=== PATIENT | male | born 1980 | race African-American/Black ===

== ENCOUNTER 2020-03-19 07:17 | Outpatient (REF) | payer MEDICAID, OTHER, SELFPAY ==
[2020-03-19 16:12] LABS: CT PCR NOT DETECTED (Not Detect.); NG PCR NOT DETECTED (Not Detect.)
[2020-03-23 05:13] LABS: Syphilis Screen Nonreactive (Nonreactive)
== END 2020-03-19 07:18 | disposition home or self-care (01) ==
LOC: HO.LAB 07:17
PROVIDERS: PCP Internal Medicine Geriatric Medicine; Visit Provider Internal Medicine
DX: Z00.00 Encounter for general adult medical examination without abnormal findings (principal)
CPT/HCPCS: 86780; 87491; 87591

== ENCOUNTER 2020-03-21 07:16 | Outpatient (REF) | payer MEDICAID, OTHER, SELFPAY | END 2020-03-21 07:17 | disposition home or self-care (01) | LOC: HO.LAB 07:16 | PROVIDERS: PCP Internal Medicine Geriatric Medicine; Visit Provider Internal Medicine | DX: Z00.00 Encounter for general adult medical examination without abnormal findings (principal) | CPT/HCPCS: 86481 ==

== ENCOUNTER → 2022-07-19 09:27 | Outpatient (BNVA) | payer OTHER, MEDICAID, SELFPAY | PROVIDERS: PCP Internal Medicine Geriatric Medicine; Referring Provider Internal Medicine Geriatric Medicine; Visit Provider Internal Medicine | DX: I45.6 Pre-excitation syndrome (principal); I49.3 Ventricular premature depolarization | CPT/HCPCS: 93005 ==

== ENCOUNTER → 2022-08-09 07:46 | Outpatient (REF) | payer OTHER, MEDICAID, SELFPAY ==
--- NOTE | 2022-08-09 07:49 | CA_ITS ---
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 Pt tolerayted well, denies any SOB or CP. EKG with PVC's at rest and in recovery,T wave inversion in lead 3, V5 and V 6 that remained unchanged after exercise. No ischemic changes seen. Normotensive response to exercise. Test reviewed with Dr. Nieves. Referred By: Huber Olson Overread By: Briana Chavira NP
== END ==
LOC: HO.CARD 07:46
PROVIDERS: PCP Internal Medicine Geriatric Medicine; Visit Provider Internal Medicine
DX: I45.6 Pre-excitation syndrome (principal)
CPT/HCPCS: 93017

== ENCOUNTER → 2022-08-22 09:18 | Outpatient (REF) | payer OTHER, MEDICAID, SELFPAY ==
--- NOTE | 2022-08-22 09:24 | CA_ITS ---
Transthoracic Echocardiogram Amended Patient (Last, First, Middle): Adam Poole, Gender: Male Date of : 1980 Age: 41 Procedure Date: 08/22/2022 Procedure Type: Transthoracic Echocardiogram Location: OP Height: 167.64 cm Weight: 68.04 kg BSA: 1.77 m2 Heart Rate: bpm BP: 124 / 68 mmHg Diamond Powder Mixer: Referring MD: Huber Olson MD Symptoms: I45.6 - Pre-excitation syndrome Study Quality: Good ECG Rhythm: Probabe sinus with ectopy, but poor tracing Conclusions: - The left ventricular systolic function is normal. The calculated ejection fraction is 59% by biplane method. - Possible hypokinesis in basal inferior wall but due to ectopy, difficult to assess. - No obvious valvular pathology seen on this study. Findings Left Ventricle Normal left ventricular cavity size. There is mildly increased left ventricular wall thickness. The left ventricular systolic function is normal. The calculated ejection fraction is 59% by biplane method. Diastolic function is normal for age. Possible hypokinesis in basal inferior wall but due to ectopy, difficult to assess. Right Ventricle Normal right ventricular cavity size and systolic function. Atria Both atria are normal in size. Aortic Valve There is a normal trileaflet aortic valve. There is no aortic valve stenosis. There is no aortic valve regurgitation. Mitral Valve The mitral valve appears normal. There is trace mitral valve regurgitation. There is no mitral valve stenosis. Pulmonic Valve The pulmonic valve is likely normal. Tricuspid Valve Normal tricuspid valve structure. There is trace tricuspid valve regurgitation. There is no evidence of pulmonary hypertension. Great Vessels The asc aorta and aortic arch are normal in size. Venous The inferior vena cava is normal in size and collapses greater than 50% with inspiration. Pericardium/Pleural There is a trivial pericardial effusion. Prior Study Comparison No significant change compared to prior study dated: 05/29/2018. (inferior wall looks similar) Recommendations, Care & Conclusions No obvious valvular pathology seen on this study. Measurements 2D Linear Measurements IVSd: 1.20 0.6-0.9/0.6-1.0 cm LVIDd: 4.00 3.9-5.3/4.2-5.9 cm LVIDd Index: 2.26 2.4-3.2/2.2-3.1 cm/m2 LVIDs: 2.85 2.0-3.6 cm LVPWd: 1.26 0.7-1.1 cm Ao Root: 3.10 2.1-3.5 cm LA Diam: 3.10 2.7-3.8/3.0-4.0 cm LAIDs Index: 1.75 1.5-2.3 cm/m2 LV Mass: 213.81 67-162/88-224 g LV Mass Index: 120.80 43-95/49-115 g/m2 LVOT Diam: 2.40 3.0+(-)1.3 cm 2D Volumes LA Vol: 24.40 2D Systolic Function EF 4C: 61.60 >55% EF 2C: 57.30 >55% EF BiP: 59.10 >55% Mitral Valve MV Pk E: 0.62 MV PK A: 0.69 MV Decel Time: 123.00 E/A: 0.90 E'Lateral: 10.20 E'Medial: 10.00 E/E' Med: 6.20 E/E' Lat: 6.10 PHT: 36.00 MVA PHT: 6.11 Decel [place]: 5.02 Aortic Valve AoV Pk Jose: 1.45 AoV Mn Jose: 0.92 AoV VTI: 0.31 AoV Pk Grad: 8.00 Aov Mn Grad: 4.00 AP Cont.VTI: 3.04 LVOT LVOT Pk Jose: 1.04 LVOT Mn Jose: 0.67 LVOT VTI: 0.21 LVOT Pk Grad: 4.00 LVOT Mn Grad: 2.00 LVOT Diam: 2.40 LVOT Area: 4.52 Diastolic Function MV Pk E: 0.62 MV Pk A: 0.69 E/A: 0.90 E'Medial: 10.00 E/E' Med: 6.20 E' Laterial: 10.20 E/E' Lat: 6.10 Right Ventricle TAPSE (mm): 23.00 TVS' Jose: 12.00 Tricuspid Valve TR Pk Jose: 1.78 TR Pk Grad: 13.00 RA Press: 3.00 RVSP: 16.00 Great Vessels Aorta Ao Root-2D: 3.10 2.0-3.7 cm Ao Asc: 3.30 2.1-3.4 cm Ao Arch: 3.00 Pulmonary Valve PV Pk Jose: 1.01 Peak PV Grad: 4.00 Updated in Other Vendor System with Status of Final Huber Olson MD electronically signed on 08/22/2022 11:07:32 AM with status of Final
--- NOTE | 2022-08-22 09:24 | HM_ITS ---
Conclusion: 1. Patient was monitored for total period of 3 days 2. Baseline was normal sinus rhythm with average heart of 82 beats per minute 3. No significant pauses or bradycardia noted 4. Total of 75,833 PVCs accounting for 21.3% of total beats account for frequent PVCs with no significant nonsustained ventricular tachycardia 5. No patient reported symptoms MTDD
== END ==
LOC: HO.CARD 09:18
PROVIDERS: Visit Provider Internal Medicine
DX: I45.6 Pre-excitation syndrome (principal)
CPT/HCPCS: 93242; 93306

== ENCOUNTER → 2022-10-25 09:43 | Outpatient (BNVA) | payer OTHER, MEDICAID, SELFPAY | PROVIDERS: PCP Internal Medicine Geriatric Medicine; Referring Provider Internal Medicine Geriatric Medicine; Visit Provider Internal Medicine ==

== ENCOUNTER 2023-01-03 09:26 | Outpatient (REF) | payer OTHER, MEDICAID, SELFPAY ==
[2023-01-06 03:09] LABS: TS Negative Control Passed; TS Panel A 0; TS Panel B 0; TS Positive Control Passed; TSpotTB Negative (Negative)
[2023-01-08 21:29] LABS: Hematocrit 41.3 % (38.5-50.0); Hemoglobin 14.2 g/dL (13.2-17.1); MCV 84.3 fL (80.0-100.0); RDW 12.3 % (11.0-15.0)
== END 2023-01-03 09:27 | disposition home or self-care (01) ==
LOC: HO.HHCL 09:26
PROVIDERS: Visit Provider Internal Medicine Geriatric Medicine
DX: Z11.1 Encounter for screening for respiratory tuberculosis (principal); Z13.0 Encounter for screening for diseases of the blood and blood-forming organs and certain disorders involving the immune mechanism
CPT/HCPCS: 36415; 83020; 85014; 85018; 85041; 86481

== ENCOUNTER 2023-07-08 13:25 | Outpatient (REF) | payer OTHER, SELFPAY ==
--- NOTE | ~2023-07-08 | XR_ITS ---
EXAMINATION: XR KNEE, LEFT CLINICAL INFORMATION: Posterior knee pain. COMPARISON: None available. TECHNIQUE: Three views of the left knee. FINDINGS: No acute fracture or subluxation. Mild joint space narrowing of the medial compartment. No osseous erosions. No abnormal soft tissue calcifications. Small joint effusion. XR/XR knee LT 3V IMPRESSION: 1. No acute fracture or subluxation. 2. Mild degenerative osteoarthritis of the medial compartment. 3. Small joint effusion.
--- NOTE | ~2023-07-08 | US_ITS ---
ULTRASOUND EXTREMITY NONVASCULAR LIMB INDICATION: Lump/pain in the left popliteal fossa. TECHNIQUE: Real-time ultrasound images of the popliteal fossa in the left lower extremity were obtained. COMPARISON: No similar priors. FINDINGS: There is a 3.2 x 0.7 x 1.2 cm Huynh's cyst in the left popliteal fossa with trace amount of avascular internal debris. No associated thickened [place], septations nor significant surrounding fat stranding/hyperemia. The adjacent popliteal vein and artery are patent. US/US extremity nonvascular [place] IMPRESSION: There is a 3.2 cm Huynh's cyst in the left popliteal fossa.
== END 2023-07-08 13:26 | disposition home or self-care (01) ==
LOC: HO.US 13:25
PROVIDERS: PCP Internal Medicine Geriatric Medicine; Visit Provider Emergency Medicine
DX: M25.562 Pain in left knee (principal)
CPT/HCPCS: 73562; 76882

== ENCOUNTER 2023-07-10 08:07 | Outpatient (AMB) | payer OTHER, SELFPAY ==
--- NOTE | 2023-07-10 08:08 | A.OFFVIS_ITS ---
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 Patient reports off and on pain for a year. He reports that he had a sharp pain behind his knee. He states that he feels a pinch when getting up from the sitting position. He denies any locking or giving way. He has taken ibuprofen which gives him mild relief. Allergies No Known Allergies Allergy (Verified 07/10/23 08:12) Medication List - Last Reconciled 07/10/23 by Sukumar Yao MD celecoxib (Celebrex) 200 mg PO DAILY PRN [facility] Medical History (Updated 07/10/23 @ 08:21 by Sukumar Yao MD) WPW (Anfsj-Xobhnyldt-Foczq syndrome) Surgical History History of skin surgery Family History Father No problems noted. Mother No problems noted. Social History Alcohol intake: current Alcohol intake frequency: holidays/special occasions only Patient Tobacco Use Status: Never used Tobacco Physical Exam Const Other: Well-nourished well-developed very friendly male awake alert and oriented x3 in no acute distress Extrem Other: Bilateral lower extremity examination shows good capillary refill, no skin lesions noted, normal sensation light touch Left knee examination shows a minimal effusion, minimal crepitus with range of motion, tenderness along his medial and lateral joint lines, tenderness along his iliotibial band, no overlying skin lesions, positive Lalo's test, no instability Results Reviewed Results Reviewed: X-rays of the patient's left knee show minimal joint space narrowing, no acute bony abnormalities Assessment & Plan Assessment & Plan (1) Left knee pain: Code(s): M25.562 - Pain in left knee Plan Mr. Poole presents with left knee pain due to iliotibial band syndrome, hamstring strain and possible meniscus tearing. I had a lengthy discussion with the patient regarding the treatment options. I did refer him to physical therapy here at [facility]. I also gave him a prescription for Celebrex which he will take in place of the ibuprofen. I will see him back in 2 months' time for repeat clinical examination. Feel free to call me at any time should questions regarding his orthopedic management arise. Thank you very much for asking me to see this very friendly gentleman. I spent 20 minutes in reviewing the patient's records and imaging studies, seeing the patient and documenting in the medical record. Orders: Orders PT Evaluation and Treatment Today M25.562 - Pain in left knee Medications: New celecoxib (Celebrex) 200 mg PO DAILY PRN 30 caps 2RF pain Coding Level of Care Code New Pt Level 2 (67383) Diagnoses Left knee pain M25.562
== END 2023-07-10 08:20 | disposition home or self-care (01) ==
PROVIDERS: PCP Internal Medicine Geriatric Medicine; Visit Provider Orthopaedic Surgery
DX: M25.562 Pain in left knee (principal)
CPT/HCPCS: 99202

== ENCOUNTER → 2023-07-10 08:07 | Outpatient (BNVA) | payer OTHER, SELFPAY | PROVIDERS: PCP Internal Medicine Geriatric Medicine; Visit Provider Orthopaedic Surgery ==

== ENCOUNTER 2023-09-05 07:51 | Outpatient (AMB) | payer OTHER, SELFPAY ==
--- NOTE | 2023-09-05 07:58 | MHC.OFFVIS ---
Intake Vital Signs 09/05/23 07:58 Height 5 ft 7 in Intake Visit Reasons: ov-Left knee pain Intake Note: Adam is a 42 year old male who presents with Left knee pain. Patient reports his pain is not as bad but it also come and goes. He is taking the celebrex and says it does help. The patient states that all of his discomfort is along the posterior aspect of his knee. He denies any locking or giving way. He did not go to physical therapy. The patient states that he currently does not have a stretching routine. He does stay active. Allergies No Known Allergies Allergy (Verified 09/05/23 08:06) Medication List - Last Reconciled 09/05/23 by Sukumar Yao MD celecoxib (Celebrex) 200 mg PO DAILY PRN [facility] Medical History WPW (Hwjgj-Tncksiazz-Qyxtk syndrome) Surgical History History of skin surgery Family History Father No problems noted. Mother No problems noted. Social History Alcohol intake: current Alcohol intake frequency: holidays/special occasions only Patient Tobacco Use Status: Never used Tobacco Physical Exam Const Other: Well-nourished well-developed very friendly male awake alert and oriented x3 in no acute distress Extrem Other: Bilateral lower extremity examination shows good capillary refill, no skin lesions noted, normal sensation light touch Left knee examination shows minimal discomfort with range of motion, tenderness along his distal hamstrings, no overlying skin lesions, no crepitus with range of motion, negative Lalo's test Assessment & Plan Assessment & Plan (1) Left knee pain: Code(s): M25.562 - Pain in left knee Plan Mr. Poole presents with left knee discomfort most likely due to hamstring tightness. I had a lengthy discussion with the patient regarding the treatment options. He does not wish to go to formal physical therapy. I did recommend that he begin a stretching program. He will follow up with me on an as-needed basis should his symptoms worsen in any way. I spent 19 minutes in reviewing the patient's records and imaging studies, seeing the patient and documenting in the medical record. Coding Level of Care Code Est Pt Level 2 (57520) Diagnoses Left knee pain M25.562
== END 2023-09-05 08:13 | disposition home or self-care (01) ==
PROVIDERS: PCP Internal Medicine Geriatric Medicine; Visit Provider Orthopaedic Surgery
DX: M25.562 Pain in left knee (principal)
CPT/HCPCS: 99212

== ENCOUNTER → 2023-09-05 07:51 | Outpatient (BNVA) | payer OTHER, SELFPAY | PROVIDERS: PCP Internal Medicine Geriatric Medicine; Visit Provider Orthopaedic Surgery ==

== ENCOUNTER 2024-01-13 08:28 | Outpatient (REF) | payer OTHER, SELFPAY ==
[2024-01-16 00:09] LABS: TS Negative Control Passed; TS Panel A 0; TS Panel B 0; TS Positive Control Passed; TSpotTB Negative (Negative)
== END 2024-01-13 08:29 | disposition home or self-care (01) ==
LOC: HO.HHCL 08:28
PROVIDERS: Visit Provider Internal Medicine Geriatric Medicine
DX: Z11.1 Encounter for screening for respiratory tuberculosis (principal)
CPT/HCPCS: 36415; 86481

== ENCOUNTER 2024-06-15 09:32 | Outpatient (REF) | payer OTHER, SELFPAY ==
[2024-06-15 11:38] LABS: MANUAL DIFF FLAG NO
[2024-06-15 11:39] LABS: Basophils Percent Auto 0.4 % (0-2); Eosinophils Absolute Auto 0.2 X10*3/uL (0.0-0.4); Eosinophils Percent Auto 3.6 % (0-4); Hematocrit 46.6 % (42.0-52.0); Hemoglobin 15.7 g/dl (14.0-18.0); Imm Gran Abs Auto 0.01 X10*3/uL (0.00-0.03); Imm Gran Pct Auto 0.2 % (0.0-0.4); Lymphocytes Percent Auto 42.7 % (20-40); Mean Corpuscular HGB Conc 33.7 g/dl (31.0-36.0); Mean Corpuscular Hemoglobin 28.1 pg (27.0-33.0); Mean Corpuscular Volume 83.4 fL (80.0-98.0); Mean Platelet Volume 11.8 fL (9.4-12.4); Monocytes Absolute Auto 0.4 X10*3/uL (0.1-1.2); Neutrophils Absolute Auto 2.1 x10*3/uL (2.0-8.3); Neutrophils Percent Auto 45.1 % (45-73); Platelet Count 230 X10*3/uL (160-400); Red Blood Count 5.59 X10*6/uL (4.60-5.80); Red Cell Distribution Width 12.2 % (11.0-16.0); White Blood Count 4.8 X10*3/uL (4.8-10.8)
[2024-06-15 11:56] LABS: Alanine Aminotransferase 26 U/L (0-40); Albumin Level 4.3 g/dL (3.5-5.0); Alkaline Phosphatase 50 U/L (39-117); Anion Gap 10 (12-20); Aspartate Amino Transferase 22 U/L (5-37); Bilirubin Total 0.5 mg/dL (0.0-1.0); Blood Urea Nitrogen 11 mg/dL (9-16); Calcium 9.8 mg/dL (8.4-10.2); Carbon Dioxide 30 mmol/L (22-29); Chloride 107 mmol/L (96-108); Cholesterol 162 mg/dL (<200); Estimated Glomerular Filt Rate 54; Glucose Random 110 mg/dL (60-115); HDL Cholesterol 50 mg/dL (>40); LDL Cholesterol Calculated 91 mg/dL (<100); Potassium 4.2 mmol/L (3.3-5.1); Sodium 143 mmol/L (135-145); Total Protein 7.4 g/dL (6.5-8.0); Triglycerides 108 mg/dL (<150)
== END 2024-06-15 09:33 | disposition home or self-care (01) ==
LOC: HO.HHCL 09:32
PROVIDERS: Visit Provider Internal Medicine Geriatric Medicine
DX: Z00.00 Encounter for general adult medical examination without abnormal findings (principal)
CPT/HCPCS: 36415; 80053; 80061; 85025

== ENCOUNTER 2024-12-09 09:23 | Outpatient (AMB) | payer BC, SELFPAY ==
--- NOTE | 2024-12-09 09:26 | A.OFFVIS_ITS ---
Vital Signs 12/09/24 09:30 Height 5 ft 7 in Weight 154 lb BMI 24.1 BP 132/68 Blood Pressure Location Rt brachial Position Sitting Pulse 52 Pulse Source Pulse Oximeter Pulse Oximetry (%) 98 Oxygen Delivery Method Room Air Intake Visit Reasons: [place] screening Intake Note: New pt for initial colo screening. Pt has hx of PVCs which were evaluated by [facility] Cardio. CC; Pt denies any GI sx or concerns at this time. NO pertinent Surgical Hx. Temporary Receptionist Required: No Accompanied by: Self / Same As Patient Allergies No Known Allergies Allergy (Verified 09/05/23 08:06) HPI HPI [place] screening: Details: 43 my old? male with past medical history WPW, YAMILETHs is here today for pre colonoscopy screening.? Patient was sent to us by his PCP.? This is his first colonoscopy screening.? Patient denies any gastrointestinal symptoms in the past or at present.? Denies any personal or family history of gastrointestinal disease, colon polyps, or CRC.? Patient never had anesthesia in the past. Patient reports chest pressure, however after stretching patient reports that the pain goes away. Noncardiac type of chest pain.? Negative for history of sleep apnea.? Denies any history of renal, pulmonary, or hepatic disease.?? No history of infectious diseases like hepatitis A, B, C, HIV or tuberculosis.? Patient is not on any anticoagulation [facility] Medical History WPW (Nvgtb-Attnubbft-Bfang syndrome) Surgical History History of skin surgery Family History Father No problems noted. Mother No problems noted. Social History Alcohol intake: current Alcohol intake frequency: holidays/special occasions only Patient Tobacco Use Status: Never used Tobacco Review of Systems Const Denies weight gain and Denies weight loss ENT Reports no additional complaints, Denies dysphagia and Denies odynophagia Card Reports no additional complaints Resp Reports no additional complaints GI Denies abdominal pain, Denies belching, Denies melena, Denies bloating, Denies change in bowel habits, Denies dysphagia, Denies excessive flatus, Denies dyspepsia, Denies heartburn, Denies diarrhea, Denies loose stools, Denies naus ea, Denies odynophagia and Denies vomiting Reports no additional complaints Musc Reports no additional complaints Neuro Reports no additional complaints Psych Reports no additional complaints Endo Reports no additional complaints Physical Exam Vital Signs: Last Vital Signs Pulse 52 12/09/24 09:30 BP 132/68 12/09/24 09:30 Pulse Ox 98 12/09/24 09:30 Oxygen Delivery Method Room Air 12/09/24 09:30 BMI result Body Mass Index 24.1 Const General: healthy appearing, no acute distress and well developed Nutritional Appearance: well nourished Orientation/consciousness: patient oriented x3 Resp Effort & Inspection: normal respiratory effort, able to speak in complete sentences, no tracheal deviation and symmetric chest movement Auscultation: clear to auscultation bilaterally GI Inspection: Yes normal to inspection and No distended Palpation (GI): Soft to palpation, not firm, nontender and No hepatosplenomegaly present Auscultation: normal bowel sounds General: Yes no CVA tenderness Back/Spine/Pelvis Back: no CVA tenderness Skin General skin exam: elasticity normal, turgor normal and dry skin Neuro General: patient oriented x3 Psych Appearance: grossly normal Mental Status: mental status grossly normal Assessment & Plan Assessment & Plan (1) Screen for colon cancer: Code(s): Z12.11 - Encounter for screening for malignant neoplasm of colon Plan Patient denies any GI, cardiac or respiratory symptoms.? Never had anesthesia in the past. Sees cardiology for follow-up with WPW and PVCs. Denies any exertional chest pain, presyncope or syncope..? Denies any history of sleep apnea.? No history infectious diseases in the past or present.? Not on any anticoagulation therapy.? No family or personal history of colon cancer or polyps.? Patient denies melena, hematochezia, unintentional weight loss or ribbon like stools.? Discussed at length the pre-procedure,? prep, diet & medications as well as what to expect prior, during and after the procedure.?? Stressed the importance of good bowel prep.? Recommended the use of Vaseline or Calmoseptine OTC & baby wipes with bowel movements to promote comfort.? ?Patient verbalizes understanding and agrees to plan of care.? She was given the opportunity to ask questions and all questions answered.? We will see her after the procedure.? Medications: New polyethylene glycol 3350 (Miralax) As directed by gastro[facility]ology department at [facility] 238 grams PO ONCE 238 grams 0RF Z12.11 - Encounter for screening for malignant neoplasm of colon bisacodyl (Dulcolax (bisacodyl)) take 4 tabs at noon the day before your colonoscopy 20 mg (4 x 5 mg) PO ONCE 4 tabs 0RF constipation 1 day Z12.11 - Encounter for screening for malignant neoplasm of colon Coding Level of Care Code New Pt Level 3 (20396) Diagnoses Screen for colon cancer Z12.11 Time Spent (min) 40 Comment 30 minutes spent with patient and additional 10 minutes spent reviewing his records
[2024-12-09 09:30] VITALS: BP 132/68; PULSE 52; O2SAT 98; BMI 24.1
--- OUTSIDE RECORDS SUMMARY | 2024-12-09 09:38 | XMS_ITS | Encounter Summary ---
Author Organization [employer] Address [address] [place] [address] [address] [place] [address] Care Team Providers Care Tax Staff Accountant Name Role Phone Name, Marc MANRIQUE Primary Care Provider [phone] Reason for Visit * Reason Onset Date Comments r/s appt 07/17/2022 Encounter Details Date Type Department Care Team ([facility] Contact Info) Description 07/17/2022 Telephone [facility] MED[facility]INE [address] [place], [place] [id number] Name, MD Marc [address] [place] [address] r/s appt Social History Tobacco Use Types Packs/Day Years Used Date Smoking Tobacco: Never Smokeless Tobacco: Never Sex and Gender Information Value Date Recorded Sex Assigned at Male 04/09/2022 10:31 AM EDT Legal Sex Male 10:31 AM EDT Gender Identity Male 04/09/2022 10:31 AM EDT Sexual Orientation Straight 04/09/2022 10 :31 AM EDT documented as of this encounter Miscellaneous Notes * Telephone Encounter - Yeseniamary Flex Sims - 07/17/2022 9:20 AM EST Tc from pt requesting to r/s an appt for 08/10/2022 at 9:00 am for an rv. Pt states this not a goodday for him, but the Saturday it is. Please contact pt at [phone] documented in this encounter Plan of Treatment Not on file documented as of this encounter Visit Diagnoses Not on filedocumented in this encounter Care Teams Tax Staff Accountant Relationship Specialty Start Date End Date Name, MD Marc [address] [place] [address] PCP - General Family Medicine 06/10/18 documented as of this encounter
== END 2024-12-09 12:15 | disposition home or self-care (01) ==
LOC: HO.HGI 09:23
PROVIDERS: PCP Internal Medicine Geriatric Medicine; Visit Provider Nurse Practitioner Family
DX: Z01.818 Encounter for other preprocedural examination (principal); Z12.11 Encounter for screening for malignant neoplasm of colon
CPT/HCPCS: S0285

== ENCOUNTER 2025-01-14 13:30 | Outpatient (AMB) | payer BC, SELFPAY ==
--- OUTSIDE RECORDS SUMMARY | 2025-01-14 13:32 | XMS_ITS | Encounter Summary ---
Author Organization [employer] Address [address] [place] [address] [address] [place] [address] Care Team Providers Care Research Home Economist Name Role Phone Name, Marc MANRIQUE Primary Care Provider [phone] Reason for Visit * Reason Onset Date Comments r/s appt 07/17/2022 Encounter Details Date Type Department Care Team (Late Contact Info) Description 07/17/2022 Telephone [facility] MED[facility]INE [address] [place] [address] Name, MD Marc [address] [place] [address] r/s appt Social History Tobacco Use Types [...] encounter Miscellaneous Notes * Telephone Encounter - Nachory[place] Flex Sims - 07/17/2022 9:20 AM EST Tc from pt requesting to r/s an appt for 08/10/2022 at 9:00 am for an rv. Pt states this not a goodday for him, but the Saturday it is. Please contact pt at [phone] documented in this encounter Plan of Treatment Upcoming Encounters Date Type Department Care Team (Late Contact Info) Description 01/19/2025 2:00 PM EDT Office Visit [facility] OPTOMETRY [address] [place] [address] Justine John, OD [address] [place] [address] documented as of this encounter Visit Diagnoses Not on filedocumented in this encounter Care Teams Research Home Economist Relationship Specialty Start Date End Date Name, MD Marc [address] [place] [id number] PCP - General Family Medicine 06/10/18 documented as of this encounter
[2025-01-14 14:02] VITALS: BP 130/72; PULSE 69; BMI 24.0
--- NOTE | 2025-01-14 14:02 | MHC.OFFVIS ---
Vital Signs 01/14/25 14:02 Height 5 ft 7 in Weight 153 lb 7.068 oz BMI 24.0 BP 130/72 Blood Pressure Location Lt brachial Position Sitting Pulse 69 Pulse Source Monitor Intake Visit Reasons: over due f/up pre op colonoscopy/ kate [employer] Supervisor Required: No Accompanied by: Self / Same As Patient Allergies No Known Allergies Allergy (Verified 09/05/23 08:06) Medication List - Last Reconciled 01/14/25 by Eliezer Vides NP bisacodyl (Dulcolax (bisacodyl)) 20 mg (4 x 5 mg) PO ONCE 1 day celecoxib (Celebrex) 200 mg PO DAILY PRN polyethylene glycol 3350 (Miralax) 238 grams PO ONCE HPI Comments Details: This is a 44-year-old male patient coming in for an overdue follow-up visit, accompanied by family member. Patient with a history of WPW syndrome, and PVCs who had undergone previously a stress test, coronary CTA, echo, and a Holter study. Patient is sent by GI for preop clearance for colonoscopy and therefore returns over 2 years later. Today, patient is reporting intermittent left-sided chest pressure that can happen with exertion as well as at rest. Patient is reporting that it can last up to 10 minutes. Patient is denying any associated symptoms of exertional shortness of breath, palpitations, dizziness, orthopnea, PND, leg edema, presyncope or syncope. [facility] Medical History WPW (Enirj-Zwutytmqq-Mesri syndrome) Surgical History History of skin surgery Family History Father No problems noted. Mother No problems noted. Social History Alcohol intake: current Alcohol intake frequency: holidays/special occasions only Patient Tobacco Use Status: Never used Tobacco Review of Systems Const Denies chills, Denies fatigue, Denies fever(s), Denies frequent falls, Denies weakness, Denies weight gain and Denies weight loss ENT Denies dizziness Card Denies chest pain, Denies leg edema, Denies lightheadedness, Denies palpitations, Denies dyspnea and Denies dyspnea on exertion Resp Denies cough, Denies dyspnea and Denies dyspnea on exertion GI Denies hematochezia Musc Denies abnormal gait, Denies muscle weakness, Denies numbness, Denies radiating pain into limb and Denies tingling Neuro Denies abnormal gait, Denies dizziness, Denies frequent falls, Denies numbness, Denies tingling and Denies weakness Endo Denies fatigue and Denies palpitations Physical Exam Vital Signs: Last Vital Signs Pulse 69 01/14/25 14:02 BP 130/72 01/14/25 14:02 BMI result Body Mass Index 24.0 Const General: cooperative, healthy appearing, comfortable and no acute distress Orientation/consciousness: patient oriented x3 HEENT Head: Yes normal to inspection Neck Neck: Yes normal visual inspection, Yes trachea midline and Yes supple Chest Chest palpation & inspection: normal inspection of the chest Resp Effort & Inspection: normal respiratory effort Auscultation: clear to auscultation bilaterally, no crackles, no rales, no rhonchi and no wheezes Cardio Jugular venous distension: no JVD Palpation: normal PMI Rate: regular rate Rhythm: regular rhythm Heart sounds: S1 normal heart sound present, S2 normal heart sound present, no click, no gallops, no murmurs and no rubs Peripheral pulses: Peripheral pulses 2+ throughout GI Inspection: Yes normal to inspection Palpation (GI): Soft to palpation Auscultation: normal bowel sounds Skin General skin exam: no rashes or lesions noted Neuro General: patient oriented x3 Extrem General: Yes normal to inspection, No no pedal edema and No calf tenderness Psych Appearance: grossly normal Mental Status: mental status grossly normal Speech and movement: Normal speech and movement present Office Procedures EKG Details: EKG today showed normal sinus rhythm, rate 69 beats per minute, left axis deviation, T-wave inversion inferolaterally, presence of delta waves suggesting pre-excitation( not new), [place], [place] [id number], Complete Assessment & Plan Assessment & Plan (1) Abnormal EKG: Code(s): R94.31 - Abnormal electrocardiogram [ECG] [EKG] Category: Medical Plan: EKG changes today compared to prior with T-wave inversions inferolaterally. Coronary CTA back in 2019 had shown mid RCA artifact otherwise no significant coronary artery disease. Patient previously had an echocardiogram on 08/22/2022 that showed normal LV systolic function with possible hypokinesis in the basal inferior wall. Given patient's report of chest pain, we will proceed with a myocardial perfusion study to evaluate for any ischemic changes. (2) WPW (Kagcw-Vmrstujvs-Irrsk syndrome): Code(s): I45.6 - Pre-excitation syndrome Category: Medical Plan: History of WPW. EKG today with delta waves, not new. Patient previously had a stress test with delta wave present at a peak heart rate. (3) PVC (premature ventricular contraction): Code(s): I49.3 - Ventricular premature depolarization Category: Medical Plan: 08/22/2022-patient had undergone a Holter study that showed frequent PVCs with a burden of 21.3%. Patient's symptoms could be related to the PVCs however we will repeat a Holter since patient did not complete his yearly repeat as planned previously. (4) Preop cardiovascular exam: Code(s): Z01.810 - Encounter for preprocedural cardiovascular examination Plan: As above. We will make an addendum to this note following the testings. Advised heart healthy diet, regular exercise, avoiding caffeinated beverages, and management of vascular risk factors. Follow-up after testings. In the interim, patient will call the office with any concerns or change in symptoms. Advised to seek ER care in case of exertional chest pain not resolved with rest. This note was generated using voice recognition software. While every effort has been made to ensure accuracy and proper cross country/track and field coach, there may be occasional errors that could affect the content or meaning of the described symptoms. Orders: Orders CA stress test Today R94.31 - Abnormal electrocardiogram [ECG] [EKG] AMB EKG-In Office Today I45.6 - Pre-excitation syndrome, Z01.810 - Encounter for preprocedural cardiovascular examination CA echo transthoracic complete Today R94.31 - Abnormal electrocardiogram [ECG] [EKG] NM cardiolite stress test Today R94.31 - Abnormal electrocardiogram [ECG] [EKG] ECG 3 day holter monitor Today I45.6 - Pre-excitation syndrome, I49.3 - Ventricular premature depolarization Coding Level of Care Code Est Pt Level 4 (07908) Complex EM visit Add On G2211 Diagnoses Abnormal EKG R94.31 WPW (Wctou-Bvcpatwup-Tfnty syndrome) I45.6 PVC (premature ventricular contraction) I49.3 Preop cardiovascular exam Z01.810 CPT Codes EKG - CPT: 61749-[id number], Complete ([id number]) Time Spent (min) 31 Comment Time spent in reviewing the chart, test results, assessment, counseling and documentation.
== END 2025-01-14 14:28 | disposition home or self-care (01) ==
LOC: HO.HCS 13:30
PROVIDERS: PCP Internal Medicine Geriatric Medicine
DX: R94.31 Abnormal electrocardiogram [ECG] [EKG] (principal); I45.6 Pre-excitation syndrome; I49.3 Ventricular premature depolarization; Z01.810 Encounter for preprocedural cardiovascular examination
CPT/HCPCS: 93010; 99214

== ENCOUNTER → 2025-01-14 13:30 | Outpatient (BNVA) | payer BC, SELFPAY | PROVIDERS: PCP Internal Medicine Geriatric Medicine | DX: R94.31 Abnormal electrocardiogram [ECG] [EKG] (principal); I49.3 Ventricular premature depolarization | CPT/HCPCS: 93005 ==

== ENCOUNTER → 2025-02-24 07:57 | Outpatient (REF) | payer BC, SELFPAY ==
--- NOTE | 2025-02-24 08:01 | CA_ITS ---
Transthoracic Echocardiogram Patient (Last, First, Middle): Adam Poole, Gender: M Date of : 1980 Age: 44 Procedure Date: 02/24/2025 Procedure Type: Transthoracic Echocardiogram Location: OP Height: 170.18 cm Weight: 70.31 kg BSA: 1.81 m2 Heart Rate: bpm BP: 108 / 70 mmHg Firing Pin Gauger: TO Referring MD: Eliezer Vides REEXAMINER Symptoms: R94.31 - Abnormal electrocardiogram [ECG] [EKG] Study Quality: Adequate ECG Rhythm: Sinus Conclusions: - The left ventricular systolic function is mildly decreased. The calculated ejection fraction is 44% by biplane method. - No obvious valvular pathology seen on this study. Findings Left Ventricle Normal left ventricular cavity size. There is normal left ventricular wall thickness. The left ventricular systolic function is mildly decreased. The calculated ejection fraction is 44% by biplane method. There is mild global hypokinesis. Diastolic function is normal for age. LV peak GLS -13.7%, reduced. Right Ventricle Normal right ventricular cavity size. There is low normal right ventricular systolic function. Atria Both atria are normal in size. Aortic Valve There is a normal trileaflet aortic valve. There is no aortic valve stenosis. There is no aortic valve regurgitation. Mitral Valve The mitral valve appears normal. There is no mitral valve regurgitation. There is no mitral valve stenosis. Pulmonic Valve The pulmonic valve is likely normal. Tricuspid Valve There is trace tricuspid valve regurgitation. There is no evidence of pulmonary hypertension. Great Vessels The asc aorta is normal in size. Venous The inferior vena cava is normal in size and collapses greater than 50% with inspiration. Pericardium/Pleural There is a trivial pericardial effusion. Prior Study Comparison Changes noted compared to prior study dated: 08/22/2022. LVEF lower. Recommendations, Care & Conclusions No obvious valvular pathology seen on this study. Measurements 2D Linear Measurements IVSd: 0.96 0.6-0.9/0.6-1.0 cm LVIDd: 4.21 3.9-5.3/4.2-5.9 cm LVIDd Index: 2.33 2.4-3.2/2.2-3.1 cm/m2 LVIDs: 3.43 2.0-3.6 cm LVPWd: 1.13 0.7-1.1 cm LA Diam: 2.40 2.7-3.8/3.0-4.0 cm LAIDs Index: 1.33 1.5-2.3 cm/m2 LV Mass: 182.82 67-162/88-224 g LV Mass Index: 101.00 43-95/49-115 g/m2 LVOT Diam: 2.50 3.0+(-)1.3 cm 2D Systolic Function EF 4C: 41.60 >55% EF 2C: 49.40 >55% EF BiP: 44.00 >55% Mitral Valve MV Pk E: 0.33 MV PK A: 0.36 MV Decel Time: 179.00 E/A: 0.90 E'Lateral: 8.70 E'Medial: 6.42 E/E' Med: 5.20 E/E' Lat: 3.80 PHT: 59.00 MVA PHT: 3.73 Decel Greeley: 1.66 Aortic Valve AoV Pk Jose: 0.99 AoV Mn Jose: 0.72 AoV VTI: 0.19 AoV Pk Grad: 4.00 Aov Mn Grad: 2.00 AP Cont.VTI: 3.04 LVOT LVOT Pk Jose: 0.63 LVOT Mn Jose: 0.43 LVOT VTI: 0.12 LVOT Pk Grad: 2.00 LVOT Mn Grad: 1.00 LVOT Diam: 2.50 LVOT Area: 4.91 Diastolic Function MV Pk E: 0.33 MV Pk A: 0.36 E/A: 0.90 E'Medial: 6.42 E/E' Med: 5.20 E' Laterial: 8.70 E/E' Lat: 3.80 Right Ventricle TAPSE (mm): 23.60 TVS' Jose: 9.57 Tricuspid Valve RA Press: 3.00 Great Vessels Aorta Sinus of Valsalva: 3.44 2.0-3.[address] Ridge: 2.69 1.7-3.4 cm Ao Asc: 3.10 2.1-3.4 cm Ao Arch: 3.10 Updated in Other Vendor System with Status of Final Huber Olson MD electronically signed on 02/26/2025 9:50:41 AM with status of Final
--- OUTSIDE RECORDS SUMMARY | 2025-02-24 08:05 | XMS_ITS | Encounter Summary ---
Author Organization [employer] Address [address] [place] [address] 7 [place] [address] Care Team Providers Care Certified Ophthalmic Technician Name Role Phone Name, Marc MANRIQUE Primary Care Provider [phone] Reason for Visit * Reason Onset Date Comments r/s appt 07/17/2022 Encounter Details Date Type Department Care Team ([facility] Contact Info) Description 07/17/2022 Telephone [facility] [address] [place], [place] [id number] Name, MD Marc [address] [place] [address] r/s appt Social History Tobacco Use Types [...] Saturday it is. Please contact pt at [phone] documented in this encounter Plan of Treatment Not on file documented as of this encounter Visit Diagnoses Not on filedocumented in this encounter Care Teams Certified Ophthalmic Technician Relationship Specialty Start Date End Date Name, MD Marc [address] [place] [address] PCP - General Family Medicine 06/10/18 documented as of this encounter
--- OUTSIDE RECORDS SUMMARY | 2025-02-24 08:05 | XMS_ITS | Clinical Summary ---
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 10/23/2022 Hyperopia with astigmatism and presbyopia 2022 Woiwj-Tskknioup-Xtbfc pattern 09/04/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 Resolved Problems Problem Noted Date Diagnosed Date Resolved Date Electrocardiogram abnormal 04/23/2018 1 07/29/2023 Encounters Date Type Department Care Team Description 12/07/2024 Telephone [facility] MED[facility]INE [address] [place] [id number] Name, MD Marc Chart Prep from Last 3 Months Immunizations Immunization Administration Dates Next Due INFLUENZA VACCINE QUADRIVALE NT RECOMBINANT PRESERVATIVE FREE RIV4 03/20/2020 Influenza Injectable Quadriv alant Preservative Free IIV4 MDCK 08/02/2023 Influenza injectable quadriv alent IIV4 with preservative 04/23/2018,04/29/2017 Influenza injectable quadriv alent preservative free 02/22/2023,03/08/2021,03/08/2021 Influenza, seasonal, injecta ble, preservative free 03/17/2024 MMR 03/27/2020 Pfizer Covid-19 Vaccine 12+ 10/05/2021 Pfizer Covid-19 Vaccine 12+ kavya-sucrose (Vaughan Cap) 10/05/2021 TD (adult), 2 Lf tetanus tox oid, preservative free, adsorbed 04/29/2017 Tdap 03/20/2020 Social History Tobacco Use Types Packs/Day Years Used Date Smoking Tobacco: Never Smokeless Tobacco: Never Tobacco Cessation:Counseling Given: Not Answered Alcohol Use Standard Drinks/Week Comments Never 0 (1 standard drink = 0.6 oz pur e alcohol) Depression Answer Date Recorded Patient Health Questionnaire-9 Score 5 05/28/2024 Patient Health Questionnaire-9 Score 5 05/28/2024 Last PHQ-9: Questionnaire Data Not on file 1 07/29/2023 Housing Stability Answer Date Recorded What is your housing situation today? I have rehan vaughn 05/28/[address] you li ve. Do you have problems with any of the following? Pests such as bugs, ants, or mice 05/28/2024 Food Insecurity Answer Date Recorded Within the past 12 months, y ou worried that your food would run out before you got money to buy more: Never True 05/28/2024 Within the past 12 months,th e food you bought just didn't last and you didn't have enough money to get more: Never True Transportation Answer Date Recorded In the past 12 months, has l ack of transportation kept you from medical appts, meetings, work or from getting things needed for daily living? No 05/28/2024 Utilities Answer Date Recorded In the past 12 months, has t he electric, gas, oil or water company threatened to shut off services in your home? No 05/28/2024 Depression Answer Date Recorded Patient Health Questionnaire-2 Score 3 05/28/2024 Internet Access Answer Date Recorded Internet Access Q1 Yes 05/28/2024 Internet Access Q2 Not on file 05/28/2024 Sex and Gender Information Value Date Recorded Sex Assigned at Male 04/09/2022 10:31 AM EDT Legal Sex Male 10:31 AM EDT Gender Identity Male 04/09/2022 10:31 AM EDT Sexual Orientation Straight 04/09/2022 10 :31 AM EDT Last Filed Vital Signs Vital Sign Reading Time Taken Comments Blood Pressure 121/81 05/28/2024 3:14 PM EST Pulse 81 05/28/2024 3:14 PM EST Temperature 36.5 C (97.7 F) 05/28/2024 3:14 PM EST Respiratory Rate 21 05/28/2024 3:14 PM EST Oxygen Saturation 98% 05/28/2024 3:14 PM EST Inhaled Oxygen Concentration - - Weight 73.5 kg (162 lb) 05/28/2024 3:14 PM EST Height 167.6 cm (5' 6 ) 05/28/2024 3:14 PM EST Body Mass Index 26.15 05/28/2024 3:14 PM EST Plan of Treatment Health Maintenance Due Date Last Done Comments CT Colonography 1980 Colonoscopy 1980 Colorectal Cancer Screening 1980 FIT DNA/Cologuard 1978 FIT 1980 FOBT 1980 Sigmoidoscopy 1980 Disability Screening 1980 Alcohol/Substance Use Screening 1990 Family Planning (PISQ) 1993 Hepatitis B Vaccines (1 of 3 - 19+ 3-dose series) 1997 COVID-19 Vaccine ( season) 2025 10/05/2021, 10/05/2021, 04/12/2021, Additional history exists Influenza Vaccine (#1) 2025 , 08/02/2023, 02/22/2023, Additional history exists Depression Screening 05/28/2025 05/28/2024, 05/28/20 24 SDOH Screening 05/28/2025 05/28/2024 Tobacco Screening 11/16/2025 11/16/2024 Zoster Vaccines (1 of 2) 2028 Lipid Panel 06/15/2029 06/15/2024, 04/12/2021 DTaP/Tdap/Td Vaccines (2 - Td or Tdap) 03/20/2030 03/20/2020, 04/29/2017 RSV Patients and Patients Aged 60 years or older (1 - 1-dose 75+ series) 2053 HIV Screening Completed 04/12/2021 Hepatitis C Screening Completed 04/12/2021 HIB Vaccines Aged Out No longer eligi ble based on patient's age to complete this topic HPV Vaccines Aged Out No longer eligi ble based on patient's age to complete this topic Hepatitis A Vaccines Aged Out No long er eligible based on patient's age to complete this topic IPV Vaccines Aged Out No longer eligi ble based on patient's age to complete this topic Meningococcal B Vaccine Aged Out No l onger eligible based on patient's age to complete this topic Meningococcal Vaccine Aged Out No edwardo luz elena eligible based on patient's age to complete this topic Pneumococcal Vaccine: Pediatrics (0 to 5 Years) and At-Risk Patients (6 to 49) Years Aged Out No longer eligible based on patient's age to complete this topic RSV under 20 months Aged Out No longe r eligible based on patient's age to complete this topic Rotavirus Vaccines Aged Out No longer eligible based on patient's age to complete this topic Procedures Procedure Name Priority Date/Time Associated Diagnosis Comments LIPID PANEL, STANDARD Routine 06/15/2024 9:34 AM EST PE (physical exam), routine ZZZ HISTORICAL HEPATITIS C AB W/REFL TO HCV RNA, QN, PCR Routine 04/12/2021 9:08 AM EDT HIV 1/2 ANTIGEN/ANTIBODY, FOURTH GENERATION W/RFL Routine 04/12/2021 9:08 AM EDT from Last 3 Months or Most Recently Relevant to Health Maintenance Results * Lipid Panel, Standard (06/15/2024 9:34 AM EST) Triglycerides 108 <150 mg/dL [facility] Comment:Desirable Triglyceri de: less than 150 mg/dLBorderline High Triglyceride 150-199 mg/dLHigh Triglyceride: 200-499 mg/dLVery High Triglyceride: greater than or equal to 5OO mg/dL Cholesterol 162 <200 mg/dL [facility] Comment:Desirable Cholestero l: less than 200 mg/dLBorderline High Cholesterol: 200-239 mg/dLHigh Cholesterol: greater than 239 mg/dL LDL Cholesterol Calculated 91 <100 mg/dL [facility] Comment:Desirable LDL: less than 100 mg/dLNear Optimal/Above Optimal LDL: 110- 129 mg/dLBorderline High LDL: 130-159 mg/dLHigh LDL: 160-189 mg/dLVery High LDL: greater than or equal to 190 mg/dL HDL Cholesterol 50 >40 mg/dL [facility] Comment:Desirable HDL: great er than 40 mg/dL Note: This HDL assay may give artificially low results in patients with liver disease. Blood Venous blood specimen / Unknown 06/15/2024 9:34 AM EST 06/15/2024 11:34 AM EST Marc Britton MD LAB BLOOD ORDERABLES Final Resul t Performing Organization Address City/[facility]/ZIP Co de Phone Number [facility] [address] [place] [address] [phone] * HEPATITIS C AB W/REFL TO HCV RNA, QN, PCR (04/12/2021 9:08 AM EDT) HEPATITIS C ANTIBODY NON-REACT [facility] NON-REACT [facility] INDEX 0.02 <1.00 [facility] Comment: HCV antibody was non-reactive. There is no laboratory evidence of HCV infection. In most cases, no further action is required. However, if recent HCV exposure is suspected, a test for HCV RNA (test code 95203) is suggested. For additional information please refer to http://education.[employer]/faq/AAF24d2 (This link is being provided for informational/ educational purposes only.) 04/12/2021 9:08 AM EDT us Marc Britton MD HISTORICAL/NON ORDERABLE LABS Fi nal Result [facility] [address] * HIV 1/2 ANTIGEN/ANTIBODY,FOURTH GENERATION W/RFL (04/12/2021 9:08 AM EDT) HIV-1/2 ANTIGEN AND ANTIBODIES, 4TH GENERATION W/ REFLEX NON-REACT [facility] NON-REACT [facility] Comment: HIV-1 antigen and HIV-1/HIV-2 antibodies were not detected. There is no laboratory evidence of HIV infection. PLEASE NOTE: This information has been disclosed to you from records whose confidentiality may be protected by state law. If your state requires such protection, then the state law prohibits you from making any further disclosure of the information without the specific written consent of the person to whom it pertains, or as otherwise permitted by law. A general authorization for the release of medical or other information is NOT sufficient for this purpose. For additional information please refer to http://education.[employer]/faq/CPL690 (This link is being provided for informational/ educational purposes only.) The performance of this assay has not been clinically validated in patients less than 2 years old. 04/12/2021 9:08 AM EDT us Marc Britton MD LAB BLOOD ORDERABLES Final Resul t Performing Organization Address City/State/ZIP Co id Phone Number [facility] [address] from Last 3 Months or Most Recently Relevant to Health Maintenance Insurance [address] [place], [place] [address] Care Teams Hospice Patient Care Secretary Relationship Specialty Start Date End Date Name, MD Marc [address] [facility] [place] [address] PCP - General Family Medicine 06/10/18
== END ==
LOC: HO.CARD 07:57
PROVIDERS: PCP Internal Medicine Geriatric Medicine
DX: I45.6 Pre-excitation syndrome (principal); I49.3 Ventricular premature depolarization; R94.31 Abnormal electrocardiogram [ECG] [EKG]
CPT/HCPCS: 93242; 93306

== ENCOUNTER → 2025-02-24 08:01 | Outpatient (BNV) | payer BC, SELFPAY | PROVIDERS: PCP Internal Medicine Geriatric Medicine; Visit Provider Internal Medicine | DX: R94.31 Abnormal electrocardiogram [ECG] [EKG] (principal) | CPT/HCPCS: 93306; 93356 ==

== ENCOUNTER → 2025-03-04 07:51 | Outpatient (BNV) | payer BC, SELFPAY | PROVIDERS: PCP Internal Medicine Geriatric Medicine | DX: I49.3 Ventricular premature depolarization (principal) | CPT/HCPCS: 78452; 93016; 93018 ==

== ENCOUNTER → 2025-03-04 07:51 | Outpatient (REF) | payer BC, SELFPAY ==
--- NOTE | ~2025-03-04 | NM_ITS ---
EXERCISE MYOCARDIAL PERFUSION STUDY INDICATION: Chest pain TECHNIQUE: The patient was brought in for an exercise perfusion study on 03/04/2025. Patient performed exercise as per Sinan protocol and was injected 25 mCi of sestamibi once target heart rate was achieved. Images were obtained using the SPECT gamma camera interlaced with the gating device. Images were obtained in supine position. Resting perfusion study was performed on 03/05/2025. Patient was administered 25 mCi of sestamibi intravenously at rest. Images were then obtained in supine position. Total DLP 58 mGy-cm. Images were processed with the software and compared side to side in short axis, horizontal long axis and vertical long axis views. FINDINGS: Raw aquisition reviewed. The stress perfusion study showed no significant perfusion abnormality. Both uncorrected as well as CT attenuation corrected images were reviewed. Gating not performed due to frequent PVCs. Resting study shows no significant perfusion abnormality. Subdiaphragmatic uptake adjacent to the inferior wall. Hence inferior wall assessment is suboptimal. Gating not performed due to frequent PVCs The findings are consistent with no clear reversible or fixed perfusion defects. NM/NM cardiolite stress test IMPRESSION: 1. Myocardial perfusion imaging study shows no clear evidence of ischemia or infarction. 2. Gating not performed due to PVCs. EKG component of the test reported separately. Electronically signed by: Huber Olson MD 03/08/2025 04:13 PM EDT
--- NOTE | 2025-03-04 07:51 | CA_ITS ---
Acquisition Time: 2025-03-04 08:26:14 Total Exercise Time: 00:07:20 Test Indications: ABN EKG Medications: SEE H&P Protocol: MARY JANE Max HR: 162 BPM 93% of Pred: 174 BPM Max BP: 178/70 mmHG Max Work Load: 9.0 METS Exercise stress test with exercise 7 mins 20 secs of Bruec Protocol, achieving 93% MPHR, without any reported symptoms of chest pain or SOB, with very frequent PVCs, with normotensive response to exercise. Without any EKG changes meeting criteria for ischemia. In recovery, pt continued to feel well. Nuclear images pending. Test reviewed with Dr. Vivas. Referred By: Eliezer Vides Electronically Signed By: Eliezer Vides
--- OUTSIDE RECORDS SUMMARY | 2025-03-04 07:54 | XMS_ITS | Encounter Summary ---
Author Organization [employer] Address [address] [place] [address] [address] [place] [address] Care Team Providers Care Accounting Specialist Name Role Phone Name, Marc MANRIQUE Primary Care Provider [phone] Reason for Visit * Reason Onset Date Comments r/s appt 07/17/2022 Encounter Details Date Type Department Care Team ([facility] Contact Info) Description 07/17/2022 Telephone [facility]IC[facility] [address] [place], [place] [id number] Name, MD Marc [address] [place] [address] r/s appt Social History Tobacco Use Types [...] Saturday it is. Please contact pt at [phone] documented in this encounter Plan of Treatment Not on file documented as of this encounter Visit Diagnoses Not on filedocumented in this encounter Care Teams Accounting Specialist Relationship Specialty Start Date End Date Name, MD Marc [address] [place] [address] PCP - General Family Medicine 06/10/18 documented as of this encounter
--- OUTSIDE RECORDS SUMMARY | 2025-03-04 07:54 | XMS_ITS | Clinical Summary ---
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 09/04/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 Resolved Problems Problem Noted Date Diagnosed Date Resolved Date Electrocardiogram abnormal 04/23/2018 1 07/29/2023 Encounters Date Type Department Care Team Description 12/07/2024 Telephone [facility] [address] [place] [phone] Name, MD Marc Chart Prep from Last [...] 9:34 AM EST) Triglycerides 108 <150 mg/dL [facility] Comment:Desirable Triglyceri de: less than 150 mg/dLBorderline High Triglyceride 150-199 mg/dLHigh Triglyceride: 200-499 mg/dLVery High Triglyceride: greater than or equal to 5OO mg/dL Cholesterol 162 <200 mg/dL [facility] Comment:Desirable Cholestero l: less than 200 mg/dLBorderline High Cholesterol: 200-239 mg/dLHigh Cholesterol: greater than 239 mg/dL LDL Cholesterol Calculated 91 <100 mg/dL [facility] Comment:Desirable LDL: less than 100 mg/dLNear Optimal/Above Optimal LDL: 110- 129 mg/dLBorderline High LDL: 130-159 mg/dLHigh LDL: 160-189 mg/dLVery High LDL: greater than or equal to 190 mg/dL HDL Cholesterol 50 >40 mg/dL [facility] Comment:Desirable HDL: great er than 40 mg/dL Note: This HDL assay may give artificially low results in patients with liver disease. Blood Venous blood specimen / Unknown 06/15/2024 9:34 AM EST 06/15/2024 11:34 AM EST Marc Britton MD LAB BLOOD ORDERABLES Final Resul t Performing Organization Address City/[facility]/ZIP Co de Phone Number [facility] [address] [place] [address] [phone] * HEPATITIS C AB W/REFL TO HCV RNA, QN, PCR (04/12/2021 9:08 AM EDT) HEPATITIS C ANTIBODY NON-REACT SCOOBY NON-REACT [facility] INDEX 0.02 <1.00 [facility] Comment: HCV antibody was non-reactive. There is no laboratory evidence of HCV infection. In most cases, no further action is required. However, if recent HCV exposure is suspected, a test for HCV RNA (test code 12595) is suggested. For additional information please refer to http://education.Eatwave/faq/VOD75i2 (This link is being provided for informational/ educational purposes only.) 04/12/2021 9:08 AM EDT us Marc Britton MD HISTORICAL/NON ORDERABLE LABS Fi nal Result [facility] [address] * HIV 1/2 ANTIGEN/ANTIBODY,FOURTH GENERATION W/RFL [...] purpose. For additional information please refer to http://education.Eatwave/faq/KUQ352 (This link is being provided for informational/ educational purposes only.) The performance of this assay has not been clinically validated in patients less than 2 years old. 04/12/2021 9:08 AM EDT us Marc Britton MD LAB BLOOD ORDERABLES Final Resul t Performing Organization Address City/State/ZIP Co ut Phone Number [facility] Any[address] from Last 3 Months or Most Recently Relevant to Health Maintenance Insurance [address] [place], [place] [id number] Care Teams Ancillary Specialist Relationship Specialty Start Date End Date Name, MD Marc [address] [place] [address] PCP - General Family Medicine 06/10/18
== END ==
LOC: HO.CARD 07:51
PROVIDERS: PCP Internal Medicine Geriatric Medicine
DX: R94.31 Abnormal electrocardiogram [ECG] [EKG] (principal)
CPT/HCPCS: 78452; 93017; A9500

== ENCOUNTER → 2025-03-10 08:21 | Outpatient (REF) | payer BC, SELFPAY ==
--- NOTE | 2025-03-10 08:24 | HM_ITS ---
Conclusion: 1. Patient was monitored for total period of 3 days 2. Baseline was normal sinus rhythm with average heart of 79 beats per minute 3. Frequent wide complex ectopy noted most consistent with PVCs with total burden of 19.4% without any significant tachyarrhythmias 4. No significant pauses noted 5. Patient marked the counter 1 time correlating with PVC MTDD
--- OUTSIDE RECORDS SUMMARY | 2025-03-10 08:53 | XMS_ITS | Encounter Summary ---
Author Organization [employer] Address [address] [facility] 7t [place] [address] Care Team Providers Care Wellness Educator Name Role Phone Name, Marc MANRIQUE Primary Care Provider [phone] Encounter Details Date Type Department Care Team ([facility] Contact Info) Description 03/04/2025 Orders Only [facility] External Provider, [facility] Social History Tobacco Use Types Packs/Day Years Used Date Smoking Tobacco: Never Smokeless Tobacco: Never Alcohol Use Standard Drinks/Week Comments Never 0 [...] AM EDT documented as of this encounter Plan of Treatment Not on file documented as of this encounter Procedures Procedure Name Priority Date/Time Associated Diagnosis Comments STRESS TEST WITH MYOCARDIAL PERFUSION Routine 03/04/2025 9:44 AM EDT documented in this encounter Results * Stress test with myocardial perfusion (03/04/2025 9:44 AM EDT) 03/04/2025 9:44 AM EDT Narrative [facility] - 03/08/2025 4:17 PM EDT [place] [address] Nuclear Medicine Report Signed Patient: Adam Poole MR#: [id number] : 1980 Acct:[id number] Age/Sex: 44 / M ADM Date: 03/04/25 Loc: [facility] Attending Dr: Eliezer Vides NP Ordering Physician: Eliezer Vides NP Date of Service: 03/04/25 Procedure(s): NM cardiolite stress test Accession Number(s): [id number] cc: Marc Britton MD; Eliezer Vides NP Reason for Exam: R94.31 - Abnormal electrocardiogram [ECG] [EKG] EXERCISE MYOCARDIAL PERFUSION STUDY INDICATION: Chest pain TECHNIQUE: The patient was brought in for an exercise perfusion study on 03/04/2025. Patient performed exercise as per Sinan protocol and was injected 25 mCi of sestamibi once target heart rate was achieved. Images were obtained using the SPECT gamma camera interlaced with the gating device. Images were obtained in supine position. Resting perfusion study was performed on 03/05/2025. Patient was administered 25 mCi of sestamibi intravenously at rest. Images were then obtained in supine position. Total DLP 58 mGy-cm. Images were processed with the software and compared side to side in short axis, horizontal long axis and vertical long axis views. FINDINGS: Raw aquisition reviewed. The stress perfusion study showed no significant perfusion abnormality. Both uncorrected as well as CT attenuation corrected images were reviewed. Gating not performed due to frequent PVCs. Resting study shows no significant perfusion abnormality. Subdiaphragmatic uptake adjacent to the inferior wall. Hence inferior wall assessment is suboptimal. Gating not performed due to frequent PVCs The findings are consistent with no clear reversible or fixed perfusion defects. NM/NM cardiolite stress test IMPRESSION: 1. Myocardial perfusion imaging study shows no clear evidence of ischemia or infarction. 2. Gating not performed due to PVCs. EKG component of the test reported separately. Electronically signed by: Huber Olson MD 03/08/2025 04:13 PM EDT Workstation: Qio Dictated By: Huber Olson MD Signed By: <Electronically signed by Huber Olson MD in OV> 03/08/25 1613 DD/ 0944 TD/TT: 03/05/25 1215 Woodworker: Procedure Note Donotuseinterpreter, Image - 03/08/2025 [place] [address] Nuclear Medicine Report Signed Patient: Adam Poole#: [id number] : 1980Acct:[id number] Age/Sex: 44 / MADM Date: 03/04/25 Loc: .[facility] Attending Dr: Eliezer Vides NP Ordering Physician: Eliezer Vides NP Date of Service: 03/04/25 Procedure(s): MN cardiolite stress test Accession Number(s): [id number] cc: Tobi,Marc MANRIQUE; Eliezer Vides NP Reason for Exam: R94.31 - Abnormal electrocardiogram [ECG] [EKG] EXERCISE MYOCARDIAL PERFUSION STUDY INDICATION: Chest pain TECHNIQUE: The patient was brought in for an exercise perfusion study on 03/04/2025. Patient performed exercise as per Sinan protocol and was injected 25 mCi of sestamibi once target heart rate was achieved. Images were obtained using the SPECT gamma camera interlaced with the gating device. Images were obtained in supine position. Resting perfusion study was performed on 03/05/2025. Patient was administered 25 mCi of sestamibi intravenously at rest. Images were then obtained in supine position. Total DLP 58 mGy-cm. Images were processed with the software and compared side to side in short axis, horizontal long axis and vertical long axis views. FINDINGS: Raw aquisition reviewed. The stress perfusion study showed no significant perfusion abnormality. Both uncorrected as well as CT attenuation corrected images were reviewed. Gating not performed due to frequent PVCs. Resting study shows no significant perfusion abnormality. Subdiaphragmatic uptake adjacent to the inferior wall. Hence inferior wall assessment is suboptimal. Gating not performed due to frequent PVCs The findings are consistent with no clear reversible or fixed perfusion defects. NM/NM cardiolite stress test IMPRESSION: 1. Myocardial perfusion imaging study shows no clear evidence of ischemia or infarction. 2. Gating not performed due to PVCs. EKG component of the test reported separately. Electronically signed by: Huber Olson MD 03/08/2025 04:13 PM EDT Dictated By: Huber Olson MD Signed By: <Electronically signed by Huber Olson MD inOV> 03/08/25 1613 DD/ 0944 TD/TT: 03/05/25 1215 Woodworker: [facility] External Provider CV STRE SS PROCEDURES Final Result [facility] [address] [place] [address] documented in this encounter Visit Diagnoses Not on filedocumented in this encounter Additional Health Concerns Assessment Noted Time PHQ-9 Depression Total Score: 5 05/28/20 24 3:16 PM EST documented as of this encounter Care Teams Wellness Educator Relationship Specialty Start Date End Date Name, MD Marc [address] [place] [address] PCP - General Family Medicine 06/10/18 documented as of this encounter
--- OUTSIDE RECORDS SUMMARY | 2025-03-10 08:53 | XMS_ITS | Encounter Summary ---
Author Organization [employer] Address [address] [place] [address] 7 [place] [address] Care Team Providers Care Service Greeter Name Role Phone Name, Marc MANRIQUE Primary Care Provider [phone] Reason for Visit * Reason Onset Date Comments r/s appt 07/17/2022 Encounter Details Date Type Department Care Team ([facility] Contact Info) Description 07/17/[address] [facility] [address] [place], [place] [phone] Name, MD Marc [address] [place] [address] r/s appt Social History Tobacco Use Types [...] Saturday it is. Please contact pt at [phone] documented in this encounter Plan of Treatment Not on file documented as of this encounter Visit Diagnoses Not on filedocumented in this encounter Care Teams Service Greeter Relationship Specialty Start Date End Date Name, MD Marc [address] [place] [address] PCP - General Family Medicine 06/10/18 documented as of this encounter
--- OUTSIDE RECORDS SUMMARY | 2025-03-10 08:54 | XMS_ITS | Clinical Summary ---
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 Category 1 low vision of both eyes 10/23/2022 Hyperopia with astigmatism and presbyopia 2022 Qjvcm-Uizaagisb-Bztmi pattern 09/04/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 Resolved Problems Problem Noted Date Diagnosed Date Resolved Date Electrocardiogram abnormal 04/23/2018 1 07/29/2023 Encounters Date Type Department Care Team Description 03/04/2025 Orders Only [facility] External Provider, [facility] from Last 3 Months Immunizations Immunization Administration [...] MYOCARDIAL PERFUSION Routine 03/04/2025 9:44 AM EDT LIPID PANEL, STANDARD Routine 06/15/2024 9:34 AM EST PE (physical exam), routine ZZZ HISTORICAL HEPATITIS C AB W/REFL TO HCV RNA, QN, PCR Routine 04/12/2021 9:08 AM EDT HIV 1/2 ANTIGEN/ANTIBODY, FOURTH GENERATION W/RFL Routine 04/12/2021 9:08 AM EDT from Last 3 Months or Most Recently Relevant to Health Maintenance Results * Stress test with myocardial perfusion (03/04/2025 9:44 AM EDT) 03/04/2025 9:44 AM EDT Narrative [facility] - 03/08/2025 4:17 PM EDT [address] [address] Nuclear Medicine Report Signed Patient: Mc Carolina MR#: [id number] : 1980 Acct:[id number] Age/Sex: 44 / M ADM Date: 03/04/25 Loc: [facility] Attending Dr: Eliezer Vides L[employer]ER [employer] W[employer] P[employer]ER Ordering Physician: Eliezer Vides NP Date of Service: 03/04/25 Procedure(s): [place] cardiolite stress test Accession Number(s): [id number] cc: Name,Marc MANRIQUE; Eliezer Vides NP Reason for Exam: [...] no clear reversible or fixed perfusion defects. AZ/AZ cardiolite stress test IMPRESSION: 1. Myocardial perfusion imaging study shows no clear evidence of ischemia or infarction. 2. Gating not performed due to PVCs. EKG component of the test reported separately. Electronically signed by: Huber Olson MD 03/08/2025 04:13 PM EDT Dictated By: Huber Olson MD Signed By: <Electronically signed by Huber Olson MD in OV> 03/08/25 1613 DD/ 0944 TD/TT: 03/05/25 1215 Employment Service Specialist: Procedure Note Donotuseinterpreter, Image - 03/08/[address] [address] Nuclear Medicine Report Signed Patient: Mc Carolina#: [id number] : 1980Acct:[id number] Age/Sex: 44 / MADM Date: 03/04/25 Loc: [facility] Attending Dr: Eliezer Vides NP Ordering Physician: Eliezer Vides NP Date of Service: 03/04/25 Procedure(s): NM cardiolite stress test Accession Number(s): [id number] cc: Name,Marc MANRIQUE; Eliezer Vides NP Reason for Exam: [...] no clear reversible or fixed perfusion defects. NM/AZ cardiolite stress test IMPRESSION: 1. Myocardial perfusion imaging study shows no clear evidence of ischemia or infarction. 2. Gating not performed due to PVCs. EKG component of the test reported separately. Electronically signed by: Huber Olson MD 03/08/2025 04:13 PM EDT Dictated By: Huber Olson MD Signed By: <Electronically signed by Huber Olson MD inOV> 03/08/25 1613 DD/ 0944 TD/TT: 03/05/25 1215 Employment Service Specialist: [facility] External Provider CV STRE SS PROCEDURES Final Result Performing Organization Address City/[facility]/ZIP Co de Phone Number [facility] [address] [place] [address] * Lipid Panel, Standard (06/15/2024 9:34 AM EST) Triglycerides 108 <150 mg/dL [facility] Comment:Desirable Triglyceri de: less than 150 mg/dLBorderline High Triglyceride 150-199 mg/dLHigh Triglyceride: 200-499 mg/dLVery High Triglyceride: greater than or equal to 5OO mg/dL Cholesterol 162 <200 mg/dL [facility] Comment:Desirable Cholestero l: less than 200 mg/dLBorderline High Cholesterol: 200-239 mg/dLHigh Cholesterol: greater than 239 mg/dL LDL Cholesterol Calculated 91 <100 mg/dL [facility] Comment:Desirable LDL: less than 100 mg/dLNear Optimal/Above Optimal LDL: 110- 129 mg/dLBorderline High LDL: 130-159 mg/dLHigh LDL: 160-189 mg/dLVery High LDL: greater than or equal to 190 mg/dL HDL Cholesterol 50 >40 mg/dL [facility] Comment:Desirable HDL: great er than 40 mg/dL Note: This HDL assay may give artificially low results in patients with liver disease. Blood Venous blood specimen / Unknown 06/15/2024 9:34 AM EST 06/15/2024 11:34 AM EST Marc Britton MD LAB BLOOD ORDERABLES Final Resul t [facility] [address] [place] [address] [phone] * HEPATITIS C AB W/REFL TO HCV RNA, QN, PCR (04/12/2021 9:08 AM EDT) HEPATITIS C ANTIBODY NON-REACT SCOOBY NON-REACT [facility] INDEX 0.02 <1.00 [facility] Comment: HCV antibody was non-reactive. There is no laboratory evidence of HCV infection. In most cases, no further action is required. However, if recent HCV exposure is suspected, a test for HCV RNA (test code 74164) is suggested. For additional information please refer to http://[employer].Fitwall/faq/UGC78l1 (This link is being provided for informational/ educational purposes only.) 04/12/2021 9:08 AM EDT Marc Britton MD HISTORICAL/NON ORDERABLE LABS Fi nal Result Performing Organization Address [facility] Phone Number [facility] [address] * HIV 1/2 ANTIGEN/ANTIBODY,FOURTH GENERATION W/RFL (04/12/2021 9:08 AM EDT) HIV-1/2 ANTIGEN AND ANTIBODIES, 4TH GENERATION W/ REFLEX NON-REACT SCOOBY NON-REACT SCOOBY [facility] Comment: HIV-1 antigen and HIV-1/HIV-2 [...] purpose. For additional information please refer to http://[employer].Fitwall/faq/ZCA963 (This link is being provided for informational/ educational purposes only.) The performance of this assay has not been clinically validated in patients less than 2 years old. 04/12/2021 9:08 AM EDT Marc Britton MD LAB BLOOD ORDERABLES Final Resul t Performing Organization Address [facility] Phone Number [facility] [address] from Last 3 Months or Most Recently Relevant to Health Maintenance Insurance [facility] Care Teams Staple Fiber Washer Relationship Specialty Start Date End Date Name, MD Marc [address] [place] [phone] PCP - General Family Medicine 06/10/18
== END ==
LOC: HO.CARD 08:21
PROVIDERS: PCP Internal Medicine Geriatric Medicine
DX: I49.3 Ventricular premature depolarization (principal); I45.6 Pre-excitation syndrome
CPT/HCPCS: 93242

== ENCOUNTER → 2025-03-10 08:24 | Outpatient (BNV) | payer BC, SELFPAY | PROVIDERS: PCP Internal Medicine Geriatric Medicine; Visit Provider Internal Medicine Cardiovascular Disease | DX: I49.1 Atrial premature depolarization (principal) | CPT/HCPCS: 93244 ==

== ENCOUNTER 2025-03-31 14:28 | Outpatient (AMB) | payer BC, SELFPAY ==
[2025-03-31 14:51] VITALS: BP 110/64; PULSE 68; BMI 24.5
--- NOTE | 2025-03-31 14:51 | A.OFFVIS_ITS ---
Vital Signs 03/31/25 14:51 Height 5 ft 7 in Weight 156 lb 8.451 oz BMI 24.5 BP 110/64 Blood Pressure Location Lt brachial Position Sitting Pulse 68 Intake Visit Reasons: follow up / stress mibi Intake Note: Follow-up after stress, holter, and echo results feeling good Aircrewman Required: No Allergies No Known Allergies Allergy (Verified 09/05/23 08:06) Medication List - Last Reconciled 03/31/25 by Eliezer Vides NP bisacodyl (Dulcolax (bisacodyl)) 20 mg (4 x 5 mg) PO ONCE 1 day celecoxib (Celebrex) 200 mg PO DAILY PRN HPI Comments Details: This is a 44-year-old male patient coming in for a follow-up visit to discuss his test results. Patient with a history of Fwnep-Pfnymwemj-Utqxr syndrome and PVCs who came in for reports of left-sided intermittent chest pressure and subsequently underwent an echo, stress test and a Holter study. Today, patient is reporting intermittent palpitations and ongoing chest pressure otherwise denies any exertional shortness of breath, dizziness, orthopnea, PND, leg edema, presyncope or syncope. [facility] Medical History WPW (Kousr-Mhsdogdzc-Wtawe syndrome) Surgical History History of skin surgery Family History Father No problems noted. Mother No problems noted. Social History Alcohol intake: current Alcohol intake frequency: holidays/special occasions only Patient Tobacco Use Status: Never used Tobacco Review of Systems Const Denies chills, Denies fatigue, Denies fever(s), Denies frequent falls, Denies weakness, Denies weight gain and Denies weight loss ENT Denies dizziness Card Denies chest pain, Denies leg edema, Denies lightheadedness, Denies palpitatio ns, Denies dyspnea, Denies dyspnea on exertion, Denies orthopnea and Denies other (loss of consciousness) Resp Denies cough, Denies dyspnea and Denies dyspnea on exertion GI Denies hematochezia and Denies change in stool character Musc Denies abnormal gait, Denies muscle weakness, Denies numbness, Denies radiating pain into limb and Denies tingling Neuro Denies abnormal gait, Denies dizziness, Denies frequent falls, Denies numbness, Denies tingling and Denies weakness Endo Denies fatigue and Denies palpitations Physical Exam Vital Signs: Last Vital Signs Pulse 68 03/31/25 14:51 BP 110/64 03/31/25 14:51 BMI result Body Mass Index 24.5 Const General: cooperative, healthy appearing, comfortable and no acute distress Orientation/consciousness: patient oriented x3 HEENT Head: Yes normal to inspection Neck Neck: Yes normal visual inspection, Yes trachea midline and Yes supple Chest Chest palpation & inspection: normal inspection of the chest Resp Effort & Inspection: normal respiratory effort Auscultation: clear to auscultation bilaterally, no crackles, no rales, no rhonchi and no wheezes Cardio Jugular venous distension: no JVD Palpation: normal PMI Rate: regular rate Rhythm: regular rhythm Heart sounds: S1 normal heart sound present, S2 normal heart sound present, no click, no gallops, no murmurs and no rubs Peripheral pulses: Peripheral pulses 2+ throughout GI Inspection: Yes normal to inspection Palpation (GI): Soft to palpation Auscultation: normal bowel sounds Skin General skin exam: no rashes or lesions noted Neuro General: patient oriented x3 Extrem General: Yes normal to inspection, No no pedal edema and No calf tenderness Psych Appearance: grossly normal Mental Status: mental status grossly normal Speech and movement: Normal speech and movement present Assessment & Plan Assessment & Plan (1) Cardiomyopathy: Code(s): I42.9 - Cardiomyopathy, unspecified Category: Medical Plan: 02/24/2025-echo study showed a mildly decreased LV systolic function with ejection fraction at 44% with mild global hypokinesis. 03/04/2025-patient underwent a myocardial perfusion study that showed no clear evidence of ischemia or infarction. Gating was not performed due to frequent PVCs. Stress portion of the test with moderate workload without any ischemic changes on EKGs. 03/10/2025-Holter study showed underlying normal sinus rhythm with frequent PVCs with a burden of 19.4%. Given his ongoing high burden of PVC and symptoms of palpitations and chest discomfort as well as low EF, we will refer patient out to exercise manager for evaluation of catheter ablation. In the meanwhile, we will also start patient on neurohormonal modulation with Jardiance, lisinopril, and low-dose metoprolol. Discussed in detail the benefits of neurohormonal modulation with the patient. Discussed signs and symptoms of heart failure to watch for. Advised on low-salt diet and to monitor blood pressures at home and to keep a log of it. We will get labs in 1 month. (2) WPW (Zkrag-Tnzdjoixq-Ewwwe syndrome): Code(s): I45.6 - Pre-excitation syndrome Category: Medical Plan: History of WPW. Patient previously had a stress test with delta wave present at a peak heart rate. (3) PVC (premature ventricular contraction): Code(s): I49.3 - Ventricular premature depolarization Category: Medical Plan: As above. Advised heart healthy diet, regular exercise, avoiding stimulants, stress mitigation strategies, and med compliance. Follow up in 2 months. In the interim, patient will call the office with any concerns or change in symptoms. This note was generated using voice recognition software. While every effort has been made to ensure accuracy and proper and drying supervisor cooking casing, there may be occasional e rrors that could affect the content or meaning of the described symptoms. Orders: Orders Basic Metabolic Panel 1 Month I42.9 - Cardiomyopathy, unspecified Referrals Cardiac Electrophysiology Referral I49.3 - Ventricular premature depo larization Medications: New metoprolol succinate ER 25 mg PO DAILY 60 tabs 3RF empagliflozin (Jardiance) 10 mg PO DAILY 90 tabs 3RF metoprolol succinate ER 12.5 mg (1/2 x 25 mg) PO DAILY 60 tabs 3RF blood pressure monitor As directed 1 ea 0RF I10 - Essential (primary) hypertension, I42.9 - Cardiomyopathy, unspecified lisinopril 5 mg PO DAILY 60 tabs 3RF Coding Level of Care Code Est Pt Level 4 (18732) Complex EM visit Add On G2211 Diagnoses Cardiomyopathy I42.9 WPW (Gxint-Uduyhlwyv-Prere syndrome) I45.6 PVC (premature ventricular contraction) I49.3 Time Spent (min) 34 Comment Time spent in reviewing the chart, test results, assessment, counseling and documentation.
--- OUTSIDE RECORDS SUMMARY | 2025-03-31 20:39 | XMS_ITS | Encounter Summary ---
Author Organization [employer] Address [address] [place] [address] [address] [place] [address] Care Team Providers Care Vault Worker Name Role Phone Name, Marc MANRIQUE Primary Care Provider [phone] Reason for Visit * Reason Onset Date Comments r/s appt 07/17/2022 Encounter Details Date Type Department Care Team (Late Contact Info) Description 07/17/[address] [facility] [address] [place] [address] Name, MD Marc [address] [place] [address] r/s appt Social History Tobacco Use Types [...] Saturday it is. Please contact pt at [phone] documented in this encounter Plan of Treatment Upcoming Encounters Date Type Department Care Team (Late Contact Info) Description 06/07/2025 10:45 AM EST Office Visit [facility] [address] [place] [address] Name, MD Marc [address] [place] [address] documented as of this encounter Visit Diagnoses Not on filedocumented in this encounter Care Teams Vault Worker Relationship Specialty Start Date End Date Name, MD Marc [address] [place] [address] PCP - General Family Medicine 06/10/18 documented as of this encounter
--- OUTSIDE RECORDS SUMMARY | 2025-03-31 20:39 | XMS_ITS | Clinical Summary ---
Author Organization [employer] Address [address] [place] [address] 7 [place] [address] Care Team Providers Care Instructional Facilitator Name Role Phone Name, Marc MANRIQUE Primary Care Provider [phone] Allergies No known active allergies Medications celecoxib (CeleBREX) 200 MG capsule TAKE 1 CAPSULE BY MOUTH EVERY DAY NEEDED FOR PAIN 30 capsule 1 Active Diclofenac Sodium 1 % gelIndications: Strain of cervical portion of right trapezius muscle Apply 1 Application topically if needed in the morning, at noon, in the evening, and at bedtime (pain) for up to 7 days. 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 Resolved Problems Problem Noted Date Diagnosed Date Resolved Date Electrocardiogram abnormal 04/23/2018 1 07/29/2023 Encounters Date Type Department Care Team Description 03/19/2025 9:00 AM EDT Office Visit [facility] [address] [place] [address] León Lockhart MD Strain of cervical portion of right trapezius muscle (Primary Dx) 03/19/2025 Travel 03/04/2025 Orders Only [facility] External Provider, [facility] from Last 3 Months Immunizations Immunization Administration [...] Sign Reading Time Taken Comments Blood Pressure 148/96 03/19/2025 8:55 AM EDT Pulse 83 03/19/2025 8:55 AM EDT Temperature 36.6 C (97.9 F) 03/19/2025 8:55 AM EDT Respiratory Rate 16 03/19/2025 8:55 AM EDT Oxygen Saturation 98% 05/28/2024 3:14 PM EST Inhaled Oxygen Concentration - - Weight 71.4 kg (157 lb 6.4 oz) 03/19/2025 8:55 A M EDT Height 167.6 cm (5' 6 ) 03/19/2025 8:55 AM EDT Body Mass Index 25.41 03/19/2025 8:55 AM EDT Plan of Treatment Upcoming Encounters Date Type Department Care Team (Late st Contact Info) Description 06/07/2025 10:45 AM EST Office Visit [facility] [address] [id number] Name, MD Marc [address] [place] [address] Health Maintenance Due Date Last Done Comments [...] 24 SDOH Screening 05/28/2025 05/28/2024 Tobacco Screening 03/19/2026 03/19/2025 Zoster Vaccines (1 of 2) 2028 Lipid [...] AM EDT) 03/04/2025 9:44 AM EDT Narrative [facility] - 03/08/2025 4:17 PM EDT [place] [address] Nuclear Medicine Report Signed Patient: Mc Carolina MR#: [id number] : 1980 Acct:[id number] Age/Sex: 44 / M ADM Date: 03/04/25 Loc: [facility] Attending Dr: Eliezer Vides NP Ordering Physician: Eliezer Vides NP Date of Service: 03/04/25 Procedure(s): NM cardiolite stress test Accession Number(s): [id number] cc: Name,Marc MANRIQUE; Eliezer Vides NP Reason [...] 03/08/25 1613 DD/ 0944 TD/TT: 03/05/25 1215 [employer] Pumping Station Helper: Procedure Note Donotuseinterpreter, Image - 03/08/2025 [place] [address] Nuclear Medicine Report Signed Patient: Glenn Carolina#: [id number] : 1980Acct:[id number] Age/Sex: 44 / MADM Date: 03/04/25 Loc: .[facility] Attending Dr: Eliezer Vides NP Ordering Physician: Eliezer Vides NP Date of Service: 03/04/25 Procedure(s): NM cardiolite stress test Accession Number(s): [id number] cc: Name,Marc MANRIQUE; Eliezer Vides NP Reason [...] Olson MD 03/08/2025 04:13 PM EDT Workstation: Cabana Dictated By: Huber Olson MD Signed By: <Electronically signed by Huber Olson MD inOV> 03/08/25 1613 DD/ 0944 TD/TT: 03/05/25 1215 Gas Pumping Station Helper: [facility] External Provider CV STRE SS PROCEDURES Final Result [facility] [address] [place] [id number] * Lipid Panel, Standard (06/15/2024 9:34 AM EST) Triglycerides 108 <150 mg/dL [facility] Comment:Desirable Triglyceri de: less than 150 mg/dLBorderline High Triglyceride 150-199 mg/dLHigh Triglyceride: 200-499 mg/dLVery High Triglyceride: greater than or equal to 5OO mg/dL Cholesterol 162 <200 mg/dL [facility] Comment:Desirable Cholestero l: less than 200 mg/dLBorderline High Cholesterol: 200-239 mg/dLHigh Cholesterol: greater than 239 mg/dL LDL Cholesterol Calculated 91 <100 mg/dL [facility] Comment:Desirable LDL: less than 100 mg/dLNear Optimal/Above Optimal LDL: 110- 129 mg/dLBorderline High LDL: 130-159 mg/dLHigh LDL: 160-189 mg/dLVery High LDL: greater than or equal to 190 mg/dL HDL Cholesterol 50 >40 mg/dL [facility] Comment:Desirable HDL: great er than 40 mg/dL Note: This HDL assay may give artificially low results in patients with liver disease. Blood Venous blood specimen / Unknown 06/15/2024 9:34 AM EST 06/15/2024 11:34 AM EST us Marc Britton MD LAB BLOOD ORDERABLES Final Resul t Performing Organization Address City/[facility] Co de Phone Number [facility] [address] [place] [address] [phone] * HEPATITIS C AB W/REFL TO HCV RNA, QN, PCR (04/12/2021 9:08 AM EDT) HEPATITIS C ANTIBODY NON-REACT SCOOBY NON-REACT SCOOBY [facility] INDEX 0.02 <1.00 [facility] Comment: HCV antibody was non-reactive. There is no laboratory evidence of HCV infection. In most cases, no further action is required. However, if recent HCV exposure is suspected, a test for HCV RNA (test code 26453) is suggested. For additional information please refer to http://education.Equivalent DATA/faq/ICJ61x9 (This link is being provided for informational/ educational purposes only.) 04/12/2021 9:08 AM EDT us Marc Britton MD HISTORICAL/NON ORDERABLE LABS Fi nal Result Performing Organization Address City/[facility] Co de Phone Number [facility] [address] * HIV 1/2 ANTIGEN/ANTIBODY,FOURTH GENERATION W/RFL [...] purpose. For additional information please refer to http://[facility].Equivalent DATA/faq/NGJ353 (This link is being provided for informational/ educational purposes only.) The performance of this assay has not been clinically validated in patients less than 2 years old. 04/12/2021 9:08 AM EDT us Marc Britton MD LAB BLOOD ORDERABLES Final Resul t [facility] [address] from Last 3 Months or Most Recently Relevant to Health [facility] Care Teams Instructional Facilitator Relationship Specialty Start Date End Date Name, MD Marc [address] [facility] [place] [address] PCP - General Family Medicine 06/10/18
== END 2025-03-31 15:30 | disposition home or self-care (01) ==
PROVIDERS: PCP Internal Medicine Geriatric Medicine
DX: I42.9 Cardiomyopathy, unspecified (principal); I45.6 Pre-excitation syndrome; I49.3 Ventricular premature depolarization
CPT/HCPCS: 99214